=== PATIENT | female | born 2000 | race Hispanic/Latino ===

== ENCOUNTER 2024-07-12 13:14 | Emergency (ER) | payer SELFPAY ==
[2024-07-12 13:27] VITALS: BP 113/60
[2024-07-12 13:55] LABS: % Basophils 0.4 % (0-2); % Immature Granulocytes 0.3 % (0-0.5); % Lymphocytes 35.9 % (20.5-51.1); % Monocytes 5.6 % (1.7-9.3); % Neutrophils 56.8 % (42.2-75.2); Absolute Eosinophils 0.1 10^3/uL (0-0.7); Absolute Lymphocytes 3.7 10^3/uL (1.2-3.4); Absolute Monocytes 0.6 10^3/uL (0.1-0.6); Absolute Neutrophils 5.8 10^3/uL (1.4-6.5); Hematocrit 38.6 % (37.0-47.0); Hemoglobin 13.1 g/dL (12.0-16.0); Mean Corp Hgb Conc. 33.9 g/dL (33.0-37.0); Mean Corpuscular Hgb 30.5 pg (27.0-31.0); Mean Corpuscular Volume 89.8 fL (81.0-99.0); Nucleated Red Blood Cells % 0 %; Platelet Count 280 10^3/uL (130-400); Red Cell Dist. Width 12.1 % (11.5-14.5); Urine Albumin Negative (Neg - Trace); Urine Bilirubin Negative (Negative); Urine Character Clear (Clear); Urine Color Yellow; Urine Glucose Negative (Negative); Urine Ketone Negative (Negative); Urine Leukocyte Negative (Negative); Urine Nitrite Negative (Negative); Urine Occult Blood Negative (Negative); Urine Urobilinogen Negative (Neg - 1+); White Blood Cell Count 10.2 10^3/uL (4.8-10.8)
[2024-07-12 14:07] LABS: HCG, Serum Qualitative Screen Negative
[2024-07-12 14:10] LABS: ALT (SGPT) 17 U/L (0-35); AST (SGOT) 19 U/L (14-36); Albumin 4.7 g/dl (3.5-5.0); Alkaline Phosphatase 60 U/L (38-126); Blood Urea Nitrogen 10 mg/dl (7-17); Calcium 9.1 mg/dl (8.4-10.2); Carbon Dioxide 29 mmol/L (22-30); Chloride 100 mmol/L (98-107); Glucose 96 mg/dl (70-99); Potassium 3.8 mmol/L (3.5-5.1); Sodium 137 mmol/L (135-145); Total Bilirubin 0.4 mg/dl (0.2-1.3); Total Protein 7.8 g/dl (6.3-8.2); eGFR > 60.00
[2024-07-12 14:38] LABS: Lipase 104 U/L (23-300)
--- NOTE | 2024-07-12 18:16 | ED.GENMED ---
History of Present Illness
General
Chief Complaint: Abdominal Symptoms
Source: patient
Exam Limitations: none
Time Seen by Provider: 07/12/24 17:53
Nursing documentation reviewed up to this point in time: agreed with
History of Present Illness
History of Present Illness:
Patient is a 24-year-old female who presents to the ER for evaluation of epigastric pain. Patient reports starting at 2 AM she started with epigastric pain. She is very nauseous at 7 AM and has not vomited. She has a history of gastritis . She
does report this feels the same. She has not prescribed medicine. She denies any recent fever chills diarrhea. She has not taken anything for pain.
Currently symptoms are mildly there however much better than earlier today.
Review of Systems
Review of Systems
Allergies reviewed?: Yes
All Other Systems: ROS reviewed and negative except as documented in HPI and ROS
Constitutional: Reports no symptoms
Respiratory: Reports no symptoms
Cardiac: Reports no symptoms
ABD/GI: Reports abdominal pain (upper abdominal pain ) and nausea; Denies vomiting, diarrhea or constipated
: Reports no symptoms; Denies flank pain
Musculoskeletal: Reports no symptoms
Skin: Reports no symptoms
Neurological: Reports no symptoms
Psychiatric: Reports no symptoms
Phy Exam
General Physical Exam
General Presentation: no apparent distress
General age: appears stated age
General Skin: warm and dry
General Habitus: normal
General Mental: alert
General Hydration: appears well hydrated
Cardiovascular Exam
Cardiovascular Exam: regular rate/rhythm, no murmur and normal peripheral pulses
Pulmonary Exam
Pulmonary Exam: lungs clear and no respiratory distress
Gastrointestinal Exam
Gastrointestinal Exam: soft and other ( very mild epigastric tenderness , no RUQ or LUQ tenderness )
Neurological Exam
Neurological Exam: alert and oriented x3
Musculoskeletal Exam
Musculoskeletal Exam: full ROM
Skin Exam
Skin Exam: normal color and warm/dry
Psychiatric Exam
Psychiatric Exam: normal mood/affect
Course
Orders/Labs/Results
Orders:
Orders
07/12/24 13:38
Test Result ONCE
07/12/24 13:45
Complete Blood Count/With Diff Urgent
Comprehensive Metabolic Panel Urgent
HCG, Serum Qualitative Screen Urgent
Lipase Urgent
Urinalysis Reflex To Culture Urgent
Date Specimen was Collected: 07/12/24
Time Specimen was Collected: 13:38
07/12/24 18:22
Mag Hydrox/Al Hydrox/Simeth [Maalox] 30 ml Phenobarb/Hyoscy/Atropine/Scop [] 10 ml PO NOW
07/12/24 18:35
Phenobarb/Hyoscy/Atropine/Scop [] 10 ml .ROUTE .STK-MED ONE
07/12/24 18:36
Mag Hydrox/Al Hydrox/Simeth [Maalox] 30 ml .ROUTE .STK-MED ONE
Abnormal Lab Results
07/12/24
13:45
Absolute Lymphs (auto) 3.7 H 10^3/uL
(1.2-3.4)
07/12/24 13:45
07/12/24 13:45
Vital Signs
Initial and Last Documented VS:
Initial Vital Signs
Temp Pulse Resp BP Pulse Ox
98.0 F 75 16 113/60 98
07/12/24 13:27 07/12/24 13:27 07/12/24 13:27 07/12/24 13:27 07/12/24 13:27
Last Documented Vital Signs
Temp Pulse Resp BP Pulse Ox
98.6 F 75 16 111/65 100
07/12/24 18:43 07/12/24 18:43 07/12/24 18:43 07/12/24 18:43 07/12/24 18:43
MDM/Problems Addressed
Differential Diagnosis Includes:
Not limited to GERD, gastritis
MDM/Problems Addressed:
Patient is documented has a history of gastritis and presented with epigastric discomfort since 2 AM associate with nausea. She reports this did feel similar to gastritis in the past. She is no longer on any medicine for gastritis. She currently
does not have a family doctor. She presents awake alert no acute distress very minimal epigastric tenderness no right upper or left upper quadrant tenderness. Normal LFTs. No fevers. Patient nontoxic-appearing given GI cocktail and now
asymptomatic feeling much better will DC on Pepcid close outpatient follow-up with [facility] and GI.
*Pulse Oximetry
Patient hypoxic: no
*Critical Care Note
Total Time (30-74mins, 75-104mins- exclusive of procedures): Not Applicable
ED Attending Note
-
Portions of this chart may have been created with voice recognition software.� Occasional wrong word or��sound alike� substitutions may have occurred due to the inherent limitations of voice recognition software.
Discharge Plan
Departure
Patient Disposition: Home (Routine Discharge)
Date of Disposition: 07/12/24
Time of Disposition: 20:07
Patient with high blood pressure during this ER visit?: No
Condition: Fair
Covid-19: Not Applicable
Discharge Problem:
GERD (gastroesophageal reflux disease)
Instructions: Acid reflux and GERD in adults
Prescriptions:
New
famotidine [Pepcid] 40 mg tablet
40 mg PO DAILY Qty: 30 0RF
famotidine [Pepcid] 20 mg tablet
20 mg PO BID Qty: 30 0RF
Referrals:
Waleska Echols MD [Active] -
NONE,* [Family Provider] -
Activity Restrictions/Additional Instructions:
As discussed follow-up with [facility]: [phone].
Please call the office tomorrow to schedule an appointment. In addition a prescription for Pepcid was sent to your pharmacy take as directed. Follow-up with GI as needed
Avoid spicy fatty food
Interventions
Interventions:
*Risk Screen - Suicide Last Done: 07/12/24 13:27
*General Assessment Last Done: 07/12/24 18:37
*Neglect/Abuse Screening Last Done: 07/12/24 13:27
ED- Fall Risk Assessment Last Done: 07/12/24 18:37
*ED COVID-19 Vaccine History Last Done: 07/12/24 18:37
OV-Lrlhan-Eidoimuzju Assessment Last Done: 07/12/24 18:37
Discharge Date and Time
Print Language: BHUTANESE
[2024-07-12 18:43] VITALS: BP 111/65
[2024-07-12] MEDS: MAALOX 40 PO (18:45)
[2024-07-12 20:55] VITALS: BP 115/53
== END 2024-07-12 21:03 | disposition home or self-care (01) ==
LOC: EMR 13:14
PROVIDERS: Emergency Medicine; EMERGENCY PHYSICIAN Emergency Medicine
DX: K21.9 Gastro-esophageal reflux disease without esophagitis (principal)
CPT/HCPCS: 99283; 80053; 81003; 83690; 84703; 85025